=== PATIENT | male | born 1955 | race Caucasian/White ===

== ENCOUNTER 2019-11-28 07:56 | Inpatient (IN) ==
--- NOTE | 2019-11-25 10:24 | XRay Report ---
INDICATION: preop TECHNIQUE: PA and lateral upright chest x-ray COMPARISON: Previous chest x-ray dated 07/24/2019 FINDINGS: Lungs: Lungs are negative. No focal pulmonary parenchymal infiltrate or mass Heart, vascular: Mild cardiomegaly, unchanged. No pulmonary edema. Pulmonary vascularity is within normal limits Mediastinum, tonie: No mediastinal widening. No hilar mass Pleura:No pleural fluid. No pleural-based mass or calcification Thoracic spine, ribs: No thoracic compression fracture. Ribs are negative. No fracture. No lytic lesion IMPRESSION: 1. Mild cardiomegaly 2. No acute abnormality. No interval change Interpreted and Authenticated by: Tonio Small 11/25/19
[2019-11-25 11:36] LABS: Basophils # (Auto) 0.04 K/mcL (0.00-0.20); Basophils % (Auto) 0.7 % (0.0-2.0); Eosinophils # (Auto) 0.14 K/mcL (0.00-0.70); Eosinophils % (Auto) 2.4 % (0.0-7.0); Hematocrit 37.1 % (41.0-55.0); Hemoglobin 12.3 g/dL (13.5-16.5); Lymphocytes # (Auto) 2.06 K/mcL (1.50-4.80); Lymphocytes % (Auto) 34.9 % (15.0-49.0); Mean Cell Volume 88.3 fL (80.0-100.0); Mean Corpuscular HGB Conc 33.2 g/dL (31.0-36.0); Mean Platelet Volume 10.5 fL (7.4-10.4); Monocytes # (Auto) 0.56 K/mcL (0.10-0.90); Monocytes % (Auto) 9.5 % (1.0-12.0); Neutrophils % (Auto) 52.5 % (38.0-78.0); Platelet Count 185 K/mcL (140-440); Red Cell Distribution Width 12.5 % (11.5-14.5); WBC 5.9 K/mcL (4.5-11.0)
[2019-11-25 11:59] LABS: Blood Urea Nitrogen 22 mg/dL (8-23); Calcium 9.5 mg/dL (8.6-10.4); Carbon Dioxide 25 mmol/L (22-30); Chloride 107 mmol/L (96-108); Glomerular Filtration Rate 64; Glucose 110 mg/dL (70-105)
[2019-11-28] MEDS ORDERED: SCOPOLAMINE 1 PATCH PATCH TOPICAL PRN (08:00)
[2019-11-28] MEDS ORDERED: IPRATROPIUM/ALBUTEROL 3 ML AMPUL.NEB NEB PRN ×2 (08:00→16:34)
[2019-11-28] MEDS ORDERED: LEVOFLOXACIN 500 MG/100 ML BAG IV ONE (14:35)
[2019-11-28] MEDS ORDERED: ONDANSETRON 4 MG/2 ML VIAL ONE (14:40)
[2019-11-28] MEDS ORDERED: PROPOFOL 200 MG/20 ML VIAL IV ONE (14:40)
[2019-11-28] MEDS ORDERED: KETAMINE 100 MG/ML ML ONE (14:40)
[2019-11-28] MEDS ORDERED: LIDOCAINE HCL/PF 100 MG/5 ML SYRINGE IV ONE (14:40)
[2019-11-28] MEDS ORDERED: DEXAMETHASONE 10 MG/ML VIAL ONE (14:40)
[2019-11-28] MEDS ORDERED: SUCCINYLCHOLINE 20 MG/ML ML IV ONE (14:40)
[2019-11-28] MEDS ORDERED: GLYCOPYRROLATE 0.2 MG/ML VIAL IV ONE (14:40)
[2019-11-28] MEDS ORDERED: OPIUM/BELLADONNA ALKALOIDS 60 MG SUPP.RECT PR ONE (15:53)
[2019-11-28] MEDS ORDERED: IOVERSOL 20 ML VIAL IJ ONE (16:23)
--- NOTE | 2019-11-28 16:23 | XRay Report ---
INDICATION: SOB TECHNIQUE: AP portable upright chest x-ray COMPARISON: Previous chest x-ray dated 11/25/2019 FINDINGS: Lungs:Lungs are negative. No focal pulmonary parenchymal infiltrate or mass Heart, vascular:No significant cardiomegaly. Pulmonary vascularity is normal. No pulmonary edema or pulmonary congestion Mediastinum, tonie:No mediastinal widening. No hilar mass Pleura:No pleural fluid. No pleural-based mass or calcification Skeletal:Negative. IMPRESSION: Negative AP portable chest x-ray Interpreted and Authenticated by: Tonio Small 11/28/19
--- NOTE | 2019-11-28 16:31 | Brief Operative Note ---
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 mild median lobe, lateral lobe coaptation Complications: other Complications Description: Managed by the anesthesia provider (procedure was aborted immediately when issues began) : patient had emesis around his endotracheal tube, such was removed. He was accidentally given 0.5 or 0.7 of epinephrine and had the corresponding expected increase in BP and heart rate. He was bagged and stabilized. He returned to hemodynamic stability and woke up alert without gross neurological deficit. CXR ordered. Will place him in the ICU overnight for monitoring given concern for right sided aspiration. Surgeon: Tim Sebastian Estimated blood loss (cc): 10 Specimens Removed/Pathology: none sent Condition: stable Disposition: ICU
[2019-11-28] MEDS ORDERED: SENNOSIDES 1 TABLET PO PRN (16:32)
[2019-11-28] MEDS ORDERED: ACETAMINOPHEN 325 MG TABLET PO PRN (16:32)
[2019-11-28] MEDS ORDERED: ONDANSETRON 4 MG/2 ML VIAL IV PRN (16:32)
[2019-11-28] MEDS ORDERED: BISACODYL 10 MG SUPP.RECT PR PRN (16:32)
[2019-11-28] MEDS ORDERED: MAG HYDROX/AL HYDROX/SIMETH 30 ML ORAL.SUSP PO PRN (16:32)
[2019-11-28] MEDS ORDERED: ATROPINE SULFATE 0.4 MG/ML VIAL IV PRN (16:34)
[2019-11-28] MEDS ORDERED: METOPROLOL TARTRATE 5 MG/5 ML VIAL IV PRN (16:34)
[2019-11-28] MEDS ORDERED: FLUMAZENIL 0.1 MG/ML ML IV PRN (16:34)
[2019-11-28] MEDS ORDERED: LABETALOL 5 MG/ML ML IV PRN (16:34)
[2019-11-28] MEDS ORDERED: diphenhydrAMINE 50 MG/ML VIAL IV PRN (16:34)
[2019-11-28] MEDS ORDERED: fentaNYL 100 MCG/2 ML VIAL IV PRN (16:34)
[2019-11-28] MEDS ORDERED: METHOCARBAMOL 1,000 MG/10 ML VIAL IV PRN (16:34)
[2019-11-28] MEDS ORDERED: MEPERIDINE 25 MG/ML SYRINGE IV PRN (16:34)
[2019-11-28] MEDS ORDERED: NALOXONE HCL 0.4 MG/ML VIAL IV PRN (16:34)
[2019-11-28] MEDS ORDERED: ePHEDrine 50 MG/ML AMPUL IV PRN (16:34)
[2019-11-28] MEDS ORDERED: LACTATED RINGERS 1,000 ML IV SCH (16:45)
[2019-11-28] MEDS ORDERED: hydrALAZINE 20 MG/ML VIAL IV ONE (16:50)
--- NOTE | 2019-11-28 17:21 | XRay Report ---
INDICATION: Retrograde pyelogram TECHNIQUE: Intraoperative fluoroscopy and spot films utilized. 3.2 minutes fluoroscopy and 82.7 mGy exposure used by Dr. Sebastian. COMPARISON: None. FINDINGS: Urinary bladder is opacified. There is contrast extravasation from the dome of the bladder consistent with perforation. Extravasated contrast material is contained consistent with extraperitoneal perforation. IMPRESSION: Intraoperative fluoroscopy and spot films as above Interpreted and Authenticated by: Tonio Small 11/28/19
--- NOTE | 2019-11-28 17:42 | Internal Med Progress Note ---
SUBJECTIVE Subjective Patient information: Note initiated : 11/28/19 at 5:25 pm Service Date, if different from initiated Date: [] Patient: Nemesio Dodge 64 y/o M admitted on 11/28/19 for Bipolar Transurethral Resection of Prostate, bilateral RGPG, sinogram, cystogram and bladder biopsy and fulguration. During the last part of the procedure (the bipolar TURP) he had emesis around his endotracheal tube. The tube was removed by the anesthesia provider and an oral airway was placed and he was bagged. He was then accidentally given 0.5 or 0.7 dose of epinephrine with the expected elevation in BP and heart rate. The procedure was aborted. He did not need to be re-intubated. He was sent to the unit overnight for monitoring. He is currently awake and alert and denies any pain. CBI is running clear on very slow drip. Prior to surgery, he had some bradycardia (40) as he had an ablation and was still on metoprolol. Chief Complaint: [] Constitutional Vitals: Vital Signs Temp Pulse Resp BP Pulse Ox 97.6 F 56 L 14 194/100 99 11/28/19 16:52 11/28/19 16:52 11/28/19 16:52 11/28/19 16:52 11/28/19 16:52 Period Temp Pulse Resp BP Sys/Retana Pulse Ox Last 24 Hr 97.3 F-97.6 F 41-67 13-20 131-198/73-110 96-100 Intake and Output 11/28/19 11/28/19 11/28/19 05:59 13:59 21:59 Intake Total 2450 Output Total 525 Balance 1925 Weight 270 lb 9 oz Patient Weight 11/29/19 05:59 Weight 270 lb 9 oz Intake & Output: Intake & Output 11/28/19 11/28/19 11/28/19 05:59 13:59 21:59 Intake Total 2450 Output Total 525 Balance 1925 Weight 270 lb 9 oz Intake: IV - Manual Only 1950 CBI Fluid 500 Output: CBI Fluid 525 Other: Urine Appearance Clear Urine Color [place] CBI 25 General appearance: cooperative and no acute distress Head Head exam: Present atraumatic, normal inspection and normocephalic Eye Eye exam: Present EOMI and normal appearance; Absent conjunctival injection and nystagmus Pupils: Absent fixed and irregular Respiratory Respiratory exam: Absent accessory muscle use, respiratory distress, rhonchi, stridor and wheezes GI/Abdominal GI/Abdominal exam: Present soft; Absent distended, guarding, rebound and tenderness exam: Present circumcision and normal inspection; Absent scrotal swelling, testicular tenderness and urethral discharge Additional comments: catheter well secured and in good position. CBI clear on very slow drip. Neurological Exam Neurological exam: Present alert, CN II-XII intact and oriented X3; Absent altered and motor sensory deficit (moving all four extremities) Psychiatric Psychiatric exam: Present normal affect and normal mood; Absent agitated and anxious OBJ DATA Labs CBC & Chem 7: 11/25/19 10:04 11/25/19 10:04 Meds: Medications Acetaminophen (Tylenol) 650 mg PO Q4-6HP PRN; Protocol PRN Reason: Per Pain Protocol/Fever > 101 Al Hydrox/Mg Hydrox/Simethicone (Maalox) 30 ml PO Q4-6HP PRN PRN Reason: Dyspepsia Belladonna Alkaloids/Opium (B & O) 60 mg IN Q4HP PRN PRN Reason: BLADDER SPASMS Bisacodyl (Dulcolax) 10 mg IN Q2-3DAYS PRN PRN Reason: Constipation Docusate Sodium (Colace) 100 mg PO BID [facility] Enoxaparin Sodium (Lovenox) 40 mg SQ DAILY [facility] Levofloxacin (Levaquin) 500 mg in 100 mls @ 100 mls/hr IV DAILY [facility] Ondansetron HCl (Zofran) 4 mg IV Q4-6HP PRN; Protocol PRN Reason: Nausea And Vomiting Pantoprazole Sodium (Protonix) 40 mg PO QAMAC [facility] Senna (Senokot) 1 tab PO HSP PRN PRN Reason: Constipation Sodium Chloride (Saline Flush) 5 ml IV Q8 [facility] Sodium Chloride (Saline Flush) 10 ml IV Q8 [facility] A/P Assessment and plan (1) Bladder fistula: Status: Acute (2) Bladder cancer: Status: Acute (3) BPH w urinary obs/LUTS: Status: Acute (4) Aspiration into respiratory tract: Status: Acute (5) Hypertensive emergency: Status: Acute Narrative A/P Narrative: 1) hypertensive episode: -he was accidentally given 0.5 - 0.7 epi in the OR when he had emesis around his ET tube -see anesthesia records for max BP and heart rate -current grossly normal neurological exam -admitted to the unit for monitoring and d/w orthopedic designer. Will get urgent CT h ead to r/o an bleed 2) aspiration: -he had emesis around his ET tube -CXR done in post op and another for the am -currently doing well on room air with no respiratory distress -already on levofloxacin for the procedure 3) bladder fistula: -suspect to bowel -will consult general surgery in the am and may need colonoscopy and further imaging -this is the likely source of his poor bladder control 4) bladder cancer: -the erythema at his dome was biopsied -could be recurrence or may just be related to the process that lead to his fistula -await pathology 5) BPH: -he does have an enlarged prostate -we were only able to partially start resecting his median lobe and left lobe before aborting the procedure -some of his symptoms may be from the fistula -CBI clear on slow drip and can likely stop such in the am Attempted to call his . She is at work per the patient. Her number does not have voice mail. The RN will call me when the comes by after work or calls so I can update her on the above. Time Spent With Patient Time: Total time spent is greater than 50% in coordination of care (as documented) at patient's floor/unit and/or counseling patient: QUALITY Stroke Symptom Onset Unknown: No VTE Deep Vein Thrombosis/Pulmonary Embolism Present on Admission: No
--- NOTE | 2019-11-28 17:56 | Cat Scan Report ---
INDICATION: R/O bleed COMPARISON: None. TECHNIQUE: Axial noncontrast-enhanced images through the brain. Sagittally and coronally reformatted images. FINDINGS: Cerebral hemispheres:Negative. No intra-axial abnormality. No intra-axial hematoma. No localized mass effect. Brain volume is within normal limits. No hydrocephalus Brainstem and cerebellum:No intra-axial abnormality Extra-axial:No acute hemorrhage. No subdural or epidural hematoma. No subarachnoid hemorrhage. Basilar cisterns are normal Calvarial:No calvarial fracture. No lytic lesion Temporal bones are negative. No destructive lesions Soft tissue, orbits, sinuses:Orbits and visualized facial soft tissues and paranasal sinuses are negative IMPRESSION: Negative noncontrast enhanced brain CT scan. No acute intracranial hemorrhage The exam was performed using radiation dose optimization techniques including, but not limited to, automated exposure control, adjustment of the mA and/or kV according to patient size and use of iterative reconstruction technique. Interpreted and Authenticated by: Tonio Small 11/28/19
--- NOTE | 2019-11-28 18:04 | Internal Medicine Consult Note ---
HPI Data of Consult Primary Care Provider: Jimbo Penn MD Consult Narrative Patient Information: Note initiated : 11/28/19 at 6:04 pm Service Date, if different from initiated Date: [] Patient: Nemesio Dodge a 64 y/o M admitted on 11/28/19 for Bipolar Transuretheral Resection of Prostate, . Chief Complaint: Postoperative aspiration episode History of chief complaint Mr. Dodge is a 64-year-old with a history of hypertension/atrial fibrillation status post ablation/hypothyroidism who underwent bilateral retrograde pyelogram/fistulogram/bladder biopsy today. Postoperatively patient experienced vomitings episode and subsequently aspirated.(For details to the operative course and recovery. Please refer to surgery note) Patient was transferred to the ICU for monitoring of blood pressure/aspiration episode. Patient was started on antibiotic coverage. Stat CT head was performed to rule out head bleed. Subsequently hospitalist service was consulted for evaluation and overnight monitoring the patient for evidence of hypoxia or postoperative complications. I visited the patient in ICU. Patient doing well. Currently on room air. He denies postoperative pain, headache lightheadedness dizziness, unilateral weakness. He further denies diplopia, dysphagia dysarthria numbness or tingling. He also denies shortness of breath. He does report having heart ablation in the past and subsequent slow heart rhythm. Patient has been otherwise fairly healthy and has not had a major hospitalization in the recent past. He took his dose of losartan and metoprolol this morning prior to surgery. Review of systems 10 point review system was attempted and is negative except for 1 discussed above cc:: CC: Tim Sebastian MD [facility] PFSH All Active Problems (Updated 11/28/19 @ 17:32 by Tim Sebastian MD) Hypertensive emergency (Acute) Aspiration into respiratory tract (Acute) Bladder fistula (Acute) OAB (overactive bladder) (Acute) Cloudy urine (Acute) Bladder stones (Acute) Bladder diverticulum (Acute) Bladder cancer (Acute) BPH w urinary obs/LUTS (Acute) Congestive heart failure (Acute) Upper respiratory infection (Acute) Bladder cancer (Chronic) History of CT scan of abdomen (Chronic 07/22/15) Dysuria (Chronic) Flank pain (Chronic) Urinary frequency (Chronic) Umbilical hernia without mention of obstruction or gangrene (Chronic) Cholelithiasis (Chronic) HTN (hypertension) (Chronic) BPH without urinary obstruction (Chronic) Prostatitis (Chronic) Urinary urgency (Chronic) Leaking of urine (Chronic) Sensation of pressure in bladder area (Chronic) Medical History (Updated 11/28/19 @ 17:32 by Tim Sebastian MD) Bladder cancer (Chronic) BPH without urinary obstruction (Chronic) Cholelithiasis (Chronic) Dysuria (Chronic) Flank pain (Chronic) History of CT scan of abdomen (Chronic 07/22/15) HTN (hypertension) (Chronic) Leaking of urine (Chronic) Normal echocardiogram (Chronic 11/08/13) Prostatitis (Chronic) Sensation of pressure in bladder area (Chronic) Umbilical hernia without mention of obstruction or gangrene (Chronic) Urinary frequency (Chronic) Urinary urgency (Chronic) Surgical History History of bladder surgery (Chronic 07/30/15) Transurethral resction of bladder tumor, left sided tumor 4 cm in size. History of hand surgery (Chronic 08/15/12) L 2nd finger, s/p fracture Family History Father Hyperlipidemia Coronary artery disease Other Cancer HTN (hypertension) Prostate cancer Social History smoking status: Never smoker alcohol intake frequency: a few times a week substance use type: does not use MEDS/ALLERGIES Home Medications and Allergies Home Medications Medication Instructions Recorded Confirmed Type atorvastatin 40 mg tablet 40 mg PO HS 07/16/15 11/28/19 History finasteride 5 mg tablet 5 mg PO QDAY 07/16/15 11/28/19 History calcium carb-ergocalciferol (vit 1 tab PO HS 07/24/15 11/28/19 History D2) 600 mg calcium-200 unit tablet tamsulosin 0.4 mg capsule 0.8 mg PO QDAY cap 12/05/17 11/28/19 History losartan 100 mg tablet 50 mg PO BID tab 02/27/19 11/28/19 History metoprolol succinate 100 mg PO QAM 03/28/19 11/28/19 History spironolactone 12.5 mg PO QDAY 03/28/19 11/28/19 History levothyroxine [Euthyrox] 75 mcg PO QDAY 11/25/19 11/28/19 History Allergies Allergy/AdvReac Type Severity Reaction Status Date / Time lisinopril AdvReac Intermediate Cough Verified 11/25/19 09:32 loratadine AdvReac Intermediate A-Fib Verified 11/25/19 09:32 W/Prilosec omeprazole AdvReac Intermediate A-Fib Verified 11/25/19 09:32 W/Loratidine codeine AdvReac Mild Heart races Verified 11/25/19 09:32 EXAM Constitutional Vitals: Temp Pulse Resp BP Pulse Ox 97.6 F 56 L 14 194/100 99 11/28/19 16:52 11/28/19 16:52 11/28/19 16:52 11/28/19 16:52 11/28/19 16:52 Patient comfortable stable on monitor Head normocephalic Oral cavity moist No ear nose discharge Eye movement symmetrical Neck supple no lymphadenopathy S1-S2 occasionally irregular Nonlabored breathing Nondistended nontender abdomen Lower extremity no cyanosis clubbing or joint swelling Skin no suspicious lesion Estrada's catheter Psych anxious but alert cooperative Neuro normal higher function A/P Narrative A/P Narrative: * Post operative brief aspiration episode. No significant hypoxia. Patient started on aspiration precautions/close monitoring. Chest x-ray/antibiotic coverage/all meals sitting up in chair. * Postoperative hypotension following arrest epinephrine administration. CT head to rule out bleeding/continue neurochecks. Blood pressure improved to 180 systolic during my visit. Continue close monitoring. * Bladder cancer -status post bladder biopsy and fulguration. Postoperative care as per urology * History of hypertension restart home medications * Hyperlipidemia continue statin * Hypothyroidism continue thyroxine * Full code * Prophylaxis SCDs Plan * Continue close monitoring/aspiration precautions/neurochecks * Pre-existing medical condition management home meds * Telemetry monitoring * Postop care per neurology Time Spent With Patient Time: Total time spent is greater than 50% in coordination of care (as documented) at patient's floor/unit and/or counseling patient:
[2019-11-28 19:23] LABS: Basophils # (Auto) 0.03 K/mcL (0.00-0.20); Basophils % (Auto) 0.4 % (0.0-2.0); Eosinophils # (Auto) 0.02 K/mcL (0.00-0.70); Eosinophils % (Auto) 0.3 % (0.0-7.0); Hematocrit 39.8 % (41.0-55.0); Hemoglobin 13.6 g/dL (13.5-16.5); Lymphocytes # (Auto) 1.15 K/mcL (1.50-4.80); Lymphocytes % (Auto) 16.2 % (15.0-49.0); Mean Cell Volume 85.8 fL (80.0-100.0); Mean Corpuscular HGB Conc 34.2 g/dL (31.0-36.0); Mean Platelet Volume 10.8 fL (7.4-10.4); Monocytes # (Auto) 0.13 K/mcL (0.10-0.90); Monocytes % (Auto) 1.8 % (1.0-12.0); Neutrophils % (Auto) 81.3 % (38.0-78.0); Platelet Count 208 K/mcL (140-440); RBC 4.64 M/mcL (4.50-5.90); Red Cell Distribution Width 12.4 % (11.5-14.5); WBC 7.1 K/mcL (4.5-11.0)
[2019-11-28] MEDS: LOSARTAN 50 MG TABLET PO SCH (20:51)
[2019-11-28] MEDS: 0.9 % SODIUM CHLORIDE 10 ML SYRINGE IV SCH ×2 (20:52)
[2019-11-28] MEDS: DOCUSATE SODIUM 100 MG CAPSULE PO SCH (20:52)
[2019-11-28] MEDS ORDERED: ATORVASTATIN 40 MG TABLET PO SCH (21:00)
[2019-11-28] MEDS ORDERED: CALCIUM W/VIT D3 500 MG TABLET PO SCH (21:00)
[2019-11-29] MEDS: OPIUM/BELLADONNA ALKALOIDS 60 MG SUPP.RECT PR PRN ×2 (03:38→11:56)
[2019-11-29] MEDS: 0.9 % SODIUM CHLORIDE 10 ML SYRINGE IV SCH ×5 (05:37→14:11)
--- NOTE | 2019-11-29 07:02 | XRay Report ---
INDICATION: aspiration TECHNIQUE: PA and lateral upright chest x-ray COMPARISON: Previous chest x-rays dated 11/28/2019, 11/25/2019, 07/24/2019 FINDINGS: Lungs: Lungs are negative. No focal pulmonary parenchymal infiltrate or mass Heart, vascular: No significant cardiomegaly. Pulmonary vascularity is normal. No pulmonary edema or pulmonary congestion Mediastinum, tonie: No mediastinal widening. No hilar mass Pleura:No pleural fluid. No pleural-based mass or calcification Thoracic spine, ribs: No thoracic compression fracture. Ribs are negative. No fracture. No lytic lesion IMPRESSION: Negative PA and lateral chest x-ray. No evidence for aspiration pneumonia Interpreted and Authenticated by: Tonio Small 11/29/19
[2019-11-29] MEDS ORDERED: PANTOPRAZOLE 40 MG TABLET PO SCH (07:30)
[2019-11-29] MEDS ORDERED: LEVOTHYROXINE 75 MCG TABLET PO SCH (07:30)
[2019-11-29 07:53] LABS: ALT/SGPT 15 U/L (<40); AST/SGOT 14 U/L (<40); Albumin 3.7 gm/dL (3.2-5.2); Albumin/Globulin Ratio 1.6 (1.0-2.3); Alkaline Phosphatase 80 U/L (39-117); Bilirubin,Direct < 0.2 mg/dL (<0.3); Bilirubin,Total 0.5 mg/dL (0.1-1.0); Blood Urea Nitrogen 19 mg/dL (8-23); Calcium 9.4 mg/dL (8.6-10.4); Carbon Dioxide 23 mmol/L (22-30); Chloride 103 mmol/L (96-108); Globulin 2.3 gm/dL (2.2-3.7); Glomerular Filtration Rate 64; Glucose 145 mg/dL (70-105); Lactate Dehydrogenase 260 U/L (135-225); Phosphorous 3.3 mg/dL (2.5-4.5); Triglycerides 85 mg/dL (<150); Uric Acid 5.7 mg/dL (2.5-8.0)
[2019-11-29] MEDS ORDERED: METOPROLOL SUCCINATE 50 MG TAB.XL.24H PO SCH (09:00)
[2019-11-29] MEDS ORDERED: FINASTERIDE 5 MG TABLET PO SCH (09:00)
[2019-11-29] MEDS ORDERED: LEVOFLOXACIN 500 MG/100 ML BAG IV SCH ×2 (09:00)
[2019-11-29] MEDS ORDERED: ENOXAPARIN 40 MG/0.4 ML SYRINGE SQ SCH (09:00)
[2019-11-29] MEDS ORDERED: TAMSULOSIN 0.4 MG CAPSULE PO SCH (09:00)
[2019-11-29] MEDS ORDERED: SPIRONOLACTONE 25 MG TABLET PO SCH (09:00)
[2019-11-29] MEDS: LOSARTAN 50 MG TABLET PO SCH (09:06)
[2019-11-29] MEDS: DOCUSATE SODIUM 100 MG CAPSULE PO SCH (09:06)
[2019-11-29 09:25] LABS: Eosinophils % (Manual) 1 % (0-7); Hematocrit 37.8 % (41.0-55.0); Hemoglobin 12.8 g/dL (13.5-16.5); Lymphocytes % 10 % (15-49); Mean Cell Volume 86.9 fL (80.0-100.0); Mean Corpuscular HGB Conc 33.9 g/dL (31.0-36.0); Mean Platelet Volume 10.8 fL (7.4-10.4); Monocytes % (Manual) 4 % (1-12); Platelet Count 193 K/mcL (140-440); Platelet Estimate NORMAL (Normal); RBC 4.35 M/mcL (4.50-5.90); RBC Morphology NORMAL (Normal); Red Cell Distribution Width 12.4 % (11.5-14.5); Segmented Neutrophils % 85 % (38-78); WBC 9.7 K/mcL (4.5-11.0)
--- NOTE | 2019-11-29 10:17 | Internal Med Progress Note ---
SUBJECTIVE Subjective Patient information: Note initiated : 11/29/19 at 10:14 am Service Date, if different from initiated Date: [] Patient: Nemesio Dodge 64 y/o M admitted on 11/28/19 for Bipolar Transuretheral Resection of Prostate, . Chief Complaint: Mr. Dodge is a 64-year-old with a history of hypertension/atrial fibrillation status post ablation/hypothyroidism who underwent bilateral retrograde pyelogram/fistulogram/bladder biopsy today. Postoperatively patient experienced vomitings episode and subsequently aspirated.(For details to the operative course and recovery. Please refer to surgery note) Patient was transferred to the ICU for monitoring of blood pressure/aspiration episode. Patient was started on antibiotic coverage. Stat CT head was performed to rule out head bleed. Subsequently hospitalist service was consulted for evaluation and overnight monitoring the patient for evidence of hypoxia or postoperative complications. I visited the patient in ICU. Patient doing well. Currently on room air. He denies postoperative pain, headache lightheadedness dizziness, unilateral weakness. He further denies diplopia, dysphagia dysarthria numbness or tingling. He also denies shortness of breath. He does report having heart ablation in the past and subsequent slow heart rhythm. Patient has been otherwise fairly healthy and has not had a major hospitalization in the recent past. He took his dose of losartan and metoprolol this morning prior to surgery. 11/28-patient doing remarkably better. Hemodynamic stable. Restart back on home medications. Overnight on home CPAP. Currently on room air. Denies chest pain, cough, shortness of breath. No further recommendations from hospitalist service. Constitutional Vitals: Vital Signs Temp Pulse Resp BP Pulse Ox 97.6 F 53 L 14 134/69 93 11/28/19 18:02 11/29/19 10:13 11/29/19 07:08 11/29/19 09:32 11/29/19 10:13 Period Temp Pulse Resp BP Sys/Retana Pulse Ox Last 24 Hr 97.1 F-97.6 F 41-68 9-24 127-198/62-110 92-100 Intake and Output 11/28/19 11/29/19 11/29/19 21:59 05:59 13:59 Intake Total 5550 3180 Output Total 4225 3400 Balance 1325 -220 Weight 121.79 kg alert oriented No anxiety No telemetry events nonlabored breathing Intake & Output: Intake & Output 11/28/19 11/29/19 11/29/19 21:59 05:59 13:59 Intake Total 5550 3180 Output Total 4224 3400 Balance 1325 -220 Weight 121.79 kg Intake: IV 100 Oral 180 IV - Manual Only 1950 CBI Fluid 3500 3000 Output: Urine Catheter Amount 225 Void Amount 275 CBI Fluid 4225 2900 Other: Meal Dinner Breakfast Percent of Meal Consumed 50% 100% Feeding Ability Independent Independent Urine Appearance Clear Cloudy 24Fr [address] way cath to CBI Clear Clear Urine Color [place] Bright Yellow 24Fr 3 way cath to CBI [place] Bright Yellow Urine Odor Normal Normal Net CBI 700 OBJ DATA Labs CBC & Chem 7: 11/29/19 05:18 11/29/19 05:18 Labs: Abnormal Lab Results 11/29/19 11/29/19 11/28/19 05:18 05:18 18:35 RBC 4.35 L Hgb 12.8 L Hct 37.8 L 39.8 L MPV 10.8 H 10.8 H Neut % (Auto) 81.3 H Lymph # (Auto) 1.15 L Seg Neutrophils % 85 H Lymphocytes % 10 L Glucose 145 H Lactate Dehydrogenase 260 H Meds: Medications Acetaminophen (Tylenol) 650 mg PO Q4-6HP PRN; Protocol PRN Reason: Per Pain Protocol/Fever > 101 Al Hydrox/Mg Hydrox/Simethicone (Maalox) 30 ml PO Q4-6HP PRN PRN Reason: Dyspepsia Atorvastatin Calcium (Lipitor) 40 mg PO [facility] Last Admin: 11/28/19 20:51 Dose: 40 mg Documented by: Belladonna Alkaloids/Opium (B & O) 60 mg MS Q4HP PRN PRN Reason: BLADDER SPASMS Last Admin: 11/29/19 03:38 Dose: 60 mg Documented by: Bisacodyl (Dulcolax) 10 mg MS Q2-3DAYS PRN PRN Reason: Constipation Calcium/Vitamin D (Calcium W/Vit D3) 1 mg PO [facility] Last Admin: 11/28/19 20:51 Dose: Not Given Documented by: Docusate Sodium (Colace) 100 mg PO BID [facility] Last Admin: 11/29/19 09:06 Dose: 100 mg Documented by: Enoxaparin Sodium (Lovenox) 40 mg SQ DAILY [facility] Last Admin: 11/29/19 09:06 Dose: 40 mg Documented by: Finasteride (Proscar) 5 mg PO QDAY [facility] Last Admin: 11/29/19 09:13 Dose: 5 mg Documented by: Levofloxacin (Levaquin) 500 mg in 100 mls @ 100 mls/hr IV DAILY [facility] Levothyroxine [facility] ([facility]th[facility]) [facility] Admin: 11/29/19 07:30 Dose: 75 mcg Documented by: Losartan Potassium (Cozaar) 50 mg PO BID [facility] Last Admin: 11/29/19 09:06 Dose: 50 mg Documented by: Metoprolol Succinate (Toprol Xl) 100 mg PO QAM [facility] Ondansetron HCl (Zofran) 4 mg IV Q4-6HP PRN; Protocol PRN Reason: Nausea And Vomiting Pantoprazole [facility]odium (Protonix) [facility] Last Admin: 11/29/19 07:30 Dose: 40 mg Documented by: Senna (Senokot) 1 tab PO HSP PRN PRN Reason: Constipation Sodium Chloride (Saline Flush) 5 ml IV Q8 [facility] Last Admin: 11/29/19 05:37 Dose: Not Given Documented by: Sodium Chloride (Saline Flush) 10 ml IV Q8 [facility] Last Admin: 11/29/19 05:37 Dose: 10 ml Documented by: Spironolactone (Aldactone) 12.5 mg PO QDAY [facility] Last Admin: 11/29/19 09:06 Dose: 12.5 mg Documented by: Tamsulosin HCl (Flomax) 0.8 mg PO QDAY [facility] Last Admin: 11/29/19 09:07 Dose: 0.8 mg Documented by: A/P Narrative A/P Narrative: * Post operative brief aspiration episode. Patient currently on room air. Chest imaging negative for pneumonia * Postoperative hypertension following errornous epinephrine administration. CT head negative for intracranial process. Overnight blood pressures at goal * Bladder cancer -status post bladder biopsy and fulguration. Postoperative care as per urology * History of hypertension continue home medications * Hyperlipidemia continue statin * Hypothyroidism continue thyroxine * Full code * Prophylaxis SCDs Plan * No further recommendations from hospitalist service * Patient can discharge as per urology * Continue pre-existing medical condition management home meds * Hospitalist service signing off Time Spent With Patient Time: Total time spent is greater than 50% in coordination of care (as documented) at patient's floor/unit and/or counseling patient: QUALITY Stroke Symptom Onset Unknown: No VTE Deep Vein Thrombosis/Pulmonary Embolism Present on Admission: No
--- NOTE | 2019-11-29 15:12 | Internal Med Progress Note ---
SUBJECTIVE Subjective Patient information: Note initiated : 11/29/19 at 3:11 pm Service Date, if different from initiated Date: [] Patient: Nemesio Dodge 64 y/o M admitted on 11/28/19. doing well this am. repeat CXR clear. Head CT without intracranial bleed. Has been hemodynamically stable throughout the night. CBI running on a slow drip and is clear. CBI was clamped this early afternoon and patient was monitored for bleeding. Urine has remained pale yellow. No chest pain, no weakness, no cough,no SOB. His metoprolol was held today and his heart rate is 50-60's and he feels less weak. no flank pain, no suprapubic pain. no fevers, no chills, no nausea no emesis and tolerating diet. Chief Complaint: [] Constitutional Vitals: Vital Signs Temp Pulse Resp BP Pulse Ox 98 F 50 L 16 126/69 99 11/29/19 12:03 11/29/19 13:02 11/29/19 12:03 11/29/19 13:02 11/29/19 13:02 Period Temp Pulse Resp BP Sys/Retana Pulse Ox Last 24 Hr 97.1 F-98 F 31-68 9-24 110-198/61-110 91-100 Intake and Output 11/29/19 11/29/19 11/29/19 05:59 13:59 21:59 Intake Total 3640 Output Total 5225 75 Balance -1585 -75 Weight 268 lb 8 oz Patient Weight 11/30/19 05:59 Weight 268 lb 8 oz Intake & Output: Intake & Output 11/29/19 11/29/19 11/29/19 05:59 13:59 21:59 Intake Total 3640 Output Total 5225 75 Balance -1585 -75 Weight 268 lb 8 oz Intake: IV 100 Oral 540 CBI Fluid 3000 Output: Urine Catheter Amount 2050 75 Void Amount 275 CBI Fluid 2900 Other: Meal Breakfast Lunch Percent of Meal Consumed 100% 100% Feeding Ability Independent Independent Urine Appearance Cloudy Cloudy 24Fr [address] cath to CBI Clear Clear Urine Color Pale Dark Yellow Bright Yellow 24Fr 3 way cath to CBI Bright Yellow Pale [place] Urine Odor Normal Strong General appearance: cooperative and no acute distress; no disheveled Head Head exam: Present atraumatic, normal inspection and normocephalic Eye Eye exam: Present EOMI; Absent nystagmus, periorbital swelling and scleral icterus Neck Neck exam: Present full ROM Respiratory Respiratory exam: Absent accessory muscle use, rales, respiratory distress, stridor and wheezes Cardiovascular Cardiovascular exam: Present RRR GI/Abdominal GI/Abdominal exam: Present soft; Absent distended, firm, rebound, rigid and tend erness Additional comments: catheter in good position, was clear on slow CBI. then clamped for 3 hours and urine remained clear yellow. Neurological Exam Neurological exam: Present alert, CN II-XII intact and oriented X3; Absent altered and motor sensory deficit Psychiatric Psychiatric exam: Present normal affect and normal mood; Absent agitated and anxious OBJ DATA Labs CBC & Chem 7: 11/29/19 05:18 11/29/19 05:18 Labs: Abnormal Lab Results 11/29/19 11/29/19 11/28/19 05:18 05:18 18:35 RBC 4.35 L Hgb 12.8 L Hct 37.8 L 39.8 L MPV 10.8 H 10.8 H Neut % (Auto) 81.3 H Lymph # (Auto) 1.15 L Seg Neutrophils % 85 H Lymphocytes % 10 L Glucose 145 H Lactate Dehydrogenase 260 H Meds: Medications Acetaminophen (Tylenol) 650 mg PO Q4-6HP PRN; Protocol PRN Reason: Per Pain Protocol/Fever > 101 Al Hydrox/Mg Hydrox/Simethicone (Maalox) 30 ml PO Q4-6HP PRN PRN Reason: Dyspepsia Atorvastatin Calcium (Lipitor) 40 mg PO [facility] Last Admin: 11/28/19 20:51 Dose: 40 mg Documented by: Belladonna Alkaloids/Opium (B & O) 60 mg SC Q4HP PRN PRN Reason: BLADDER SPASMS Last Admin: 11/29/19 11:56 Dose: 60 mg Documented by: Bisacodyl (Dulcolax) 10 mg SC Q2-3DAYS PRN PRN Reason: Constipation Calcium/Vitamin D (Calcium W/Vit D3) 1 mg PO [facility] Last Admin: 11/28/19 20:51 Dose: Not Given Documented by: Docusate Sodium (Colace) 100 mg PO BID [facility] Last Admin: 11/29/19 09:06 Dose: 100 mg Documented by: Enoxaparin Sodium (Lovenox) 40 mg SQ DAILY [facility] Last Admin: 11/29/19 09:06 Dose: 40 mg Documented by: Finasteride (Proscar) 5 mg PO QDAY [facility] Last Admin: 11/29/19 09:13 Dose: 5 mg Documented by: Levofloxacin (Levaquin) 500 mg in 100 mls @ 100 mls/hr IV DAILY [facility] Last Infusion: 11/29/19 11:30 Dose: Infused Documented by: [facility] Admin: 11/29/19 07:30 Dose: 75 mcg Documented by: Losartan Potassium (Cozaar) 50 mg PO BID [facility] Last Admin: 11/29/19 09:06 Dose: 50 mg Documented by: Metoprolol Succ[facility] ([facility] Xl) [facility] Last Admin: 11/29/19 12:40 Dose: Not Given Documented by: Ondansetron HCl (Zofran) 4 mg IV Q4-6HP PRN; Protocol PRN Reason: Nausea And Vomiting Pantoprazole [facility]ix) [facility] Last Admin: 11/29/19 07:30 Dose: 40 mg Documented by: Senna (Senokot) 1 tab PO [facility] PRN PRN Reason: Constipation Sodium Chloride (Saline Flush) 5 ml IV Q8 [facility] Last Admin: 11/29/19 14:10 Dose: Not Given Documented by: Sodium Chloride (Saline Flush) 10 ml IV Q8 [facility] Last Admin: 11/29/19 14:11 Dose: 10 ml Documented by: Spironolactone (Aldactone) 12.5 mg PO QDAY [facility] Last Admin: 11/29/19 09:06 Dose: 12.5 mg Documented by: Tamsulosin HCl (Flomax) 0.8 mg PO QDAY [facility] Last Admin: 11/29/19 09:07 Dose: 0.8 mg Documented by: A/P Assessment and plan (1) Hypertensive emergency: Status: Acute (2) Aspiration into respiratory tract: Status: Acute (3) Bladder fistula: Status: Acute (4) OAB (overactive bladder): Status: Acute (5) Bladder cancer: Status: Acute (6) BPH w urinary obs/LUTS: Status: Acute Narrative A/P Narrative: 1) risk for aspiration pneumonia: -CXR negative and clear x2 -doing well on room air -will go home on levofloxacin 2) bladder cancer: -await bladder biopsy 3) likely bladder fistula: -d/w general surgery and consult placed -he may follow up with them (Dr. Hunter) as outpatient 4) overactive bladder -will reassess after tobar removed and healed from partial prostate resection 5) BPH: -partial bipolar TURP -urine clear off CBI, bladder back filled and catheter removed -will wait for him to void and check a PVR and for bleeding 6) disposition: -if he voids with minimal blood in urine, ok to d/c per urology -d/w hospitalist and they will decide about his metopropol and home meds -as he is likely to d/c soon if he voids, hold in unit rather than transfer to floor -follow up Dr. Sebastian 1-2 weeks Time Spent With Patient Time: Total time spent is greater than 50% in coordination of care (as documented) at patient's floor/unit and/or counseling patient: QUALITY Stroke Symptom Onset Unknown: No VTE Deep Vein Thrombosis/Pulmonary Embolism Present on Admission: No
--- NOTE | 2019-11-29 15:42 | Event Note ---
Event Note Event Note: As an addendum to today's hospitalist note and specifically in regard to his home Toprol medication: Patient has had bradycardia (h/o Afib with ablation) and was 40s when he came in. His Toprol has been held and he has been around 50-60 and feels better. Is on Toprol 100 mg daily. We will reinstitute it at only 25 mg daily and have him monitor his blood pressure and heart rate daily with further adjustments per his primary care doctor and metaphysician.
--- NOTE | 2019-11-30 21:29 | Operative Note ---
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 mild median lobe, lateral lobe coaptation Complications: other Complications Description: Managed by the anesthesia provider (procedure was aborted immediately when issues began) : patient had emesis around his endotracheal tube, such was removed. He was accidentally given 0.5 or 0.7 of epinephrine and had the corresponding expected increase in BP and heart rate. He was bagged and stabilized. He returned to hemodynamic stability and woke up alert without gross neurological deficit. CXR ordered. Will place him in the ICU overnight for monitoring given concern for right sided aspiration. Surgeon: Tim Sebastian Estimated blood loss (cc): 10 Specimens Removed/Pathology: none sent Condition: stable Disposition: ICU Informed consent was obtained and preoperative antibiotics were given. Patient was taken to the operative suite and placed on the table in the supine position. Adequate anesthesia was initiated. Patient was then placed in the dorsal lithotomy position and prepped and draped in the usual sterile fashion. We began the procedure with bilateral retrograde pyelograms. 21 Lithuanian cystoscope was entered into the urethra and bladder the bladder was examined in a systematic fashion. Scattered bullous small erythematous areas were seen. Each ureteral orifice was then cannulated with a cone-tipped catheter and radiopaque contrast material was installed under fluoroscopic guidance. On the right-hand side the ureter was of normal caliber and contour without f illing defects in the renal pelvis was free of hydronephrosis or filling defects and drainage films were normal. On the contralateral side the ureter was free of filling defects and was of normal caliber and contour and there was no hydronephrosis nor filling defects in the renal pelvis and drainage films are normal. Attention was then turned to bladder biopsy and fulguration. Cold cup biopsy w as used to take several biopsy bites of the bullous erythematous areas. The Bugbee electrode was used to fulgurate the biopsy sites. Attention was then turned to the abnormal area we saw in office cystoscopy that appeared to be the opening of a diverticulum or a fistula. Debris was noted from the opening. Scope was advanced to the opening and there did not appear to be an inner urothelial lining consistent with a diverticulum instead appeared more consistent with a fistula. We then proceeded with sinogram. The cone-tip catheter was advanced into the opening and under fluoroscopic guidance radiopaque contrast was installed. The contrast was seen to fill an irregular shaped area that was not clearly delineated as bowel. Possibly an old diverticular abscess cavity versus other etiology. The bladder was then drained. The contrast remained in the poorly defined cavity. Attention was then turned to a cystogram. Through the scope 300 cc of radiopaque contrast material was installed under fluoroscopic guidance. Bladder contours were normal and there were no distinct diverticulum. Through the fistulous tract, once the bladder was near capacity, a contrast balloon was seen to enter into and through the fistulous tract. This only occurred when the bladder was full. Attention was then turned to transurethral resection with bipolar cautery of the prostate. The resectoscope was entered into the urethra and bladder in continuous bladder irrigation was started this resection loop was then utilized to take down the median lobe and then attention was then turned to the left lateral lobe. At that point we were notified from the anesthesia provider that the patient had emesis around his endotracheal tube. We quickly cauterized any visible bleeding and aborted the procedure. And a 24 [place]ian three-way catheter was immediately placed. The anesthesia provider remove the existing endotracheal tube and placed an oral airway and was bagging the patient who remained hemodynamically stable and well oxygenated. At that point she accidentally gave epinephrine instead of succinylcholine and the patient had the expected hypertensive and tachycardic response. See anesthesia record for those vital signs. She did not need to reintubate the patient and his blood pressure and heart rate did normalize. His urine was running clear from the three-way catheter on a very minimal continuous bladder irrigation drip. He was taken to recovery in stable condition. He was alert and without gross neurologic defect in recovery and a chest x-ray was ordered urgently. 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
--- NOTE | 2019-12-02 12:21 | Surgical Pathology Report ---
Histology Microscopic Diagnosis Specimen A- BLADDER, DOME, BIOPSY: -- DENUDED UROTHELIAL MUCOSA WITH MARKED SUBEPITHELIAL ACUTE AND CHRONIC INFLAMMATION AND GRANULATION TISSUE. -- NO MALIGNANCY IDENTIFIED. Procedural Impression Benign prostatic hypertrophy with obstruction; bladder cancer. Gross Description Received in formalin labeled bladder biopsy dome, is a 0.3 x 0.4 x 0.2 cm rogers-helay portion of tissue. Totally submitted - one cassette. Microscopic Diagnosis Specimen B- PROSTATE, TRANSURETHRAL RESECTION: -- PROSTATIC GLANDULAR AND STROMAL HYPERPLASIA. -- ACUTE AND CHRONIC PROSTATITIS, MILD. -- NO MALIGNANCY IDENTIFIED. (DMT:sln) Gross Description Received in formalin labeled prostate tissue, are multiple strips of pink-healy to rogers-healy cauterized tissue fragments ranging in size from 0.8 x 0.4 x 0.4 to 1.3 x 0.4 x 0.3 cm. Totally submitted - one cassette. (KGW:sln) Electronically Signed Leon Do MD, FCAP Electronically Signed 12/02/2019 12:20 PM
== END 2019-11-29 17:45 | disposition home or self-care (01) | DRG 713 ==
LOC: MEDSUR 07:56 → ICU 17:10
PROVIDERS: ADMIT Urology; ATTEND Urology